=== PATIENT | female | born 1985 | race Hispanic/Latino ===

== ENCOUNTER 2018-12-02 07:03 | Emergency (ER) | payer OTHER ==
[2018-12-02] MEDS ORDERED: Sodium Chloride 0.9% 1,000 ML IV STA (07:52)
[2018-12-02 08:11] LABS: ALB/GLOB RATIO 1.1 (1.0-2.1); ALBUMIN 3.8 g/dL (3.5-5.0); BLOOD UREA NITROGEN 18 mg/dl (7-17); CALCIUM 8.7 mg/dL (8.4-10.2); GFR NON-AFRICAN AMERICAN > 60; LIPASE 100 U/L (23-300)
[2018-12-02 08:21] LABS: BASO % 0.5 % (0.0-2.0); EOS # 0.1 K/uL (0.0-0.7); EOS % 2.4 % (0.0-4.0); LYMPH # 0.5 K/uL (1.0-4.3); LYMPH % 9.6 % (20.0-40.0); MEAN CELL VOLUME 98.1 fl (81.0-99.0); MEAN CORPUSCULAR HEMOGLOBIN 33.4 pg (27.0-31.0); MEAN PLATELET VOLUME 8.8 fl (7.2-11.7); MONO # 0.3 K/uL (0.0-0.8); MONO % 5.5 % (0.0-10.0); NEUT # 4.3 K/uL (1.8-7.0); NRBC % 0.1 % (0.0-0.0); PLATELET COUNT 165 K/uL (130-400); RBC 4.57 Mil/uL (3.80-5.20); RED CELL DISTRIBUTION WIDTH 13.8 % (11.5-14.5); WHITE BLOOD COUNT 5.2 K/uL (4.8-10.8)
[2018-12-02 08:39] LABS: HEMOGLOBIN 15.2 g/dL (12.0-16.0)
[2018-12-02 09:22] LABS: ALT/SGPT 17 U/L (9-52); AST/SGOT 29 U/L (14-36)
[2018-12-02] MEDS ORDERED: Morphine 4 MG/ML VIAL ONE ×2 (09:24→13:46)
--- NOTE | 2018-12-02 10:06 | US ---
Date of service: 12/02/2018 HISTORY: RUQ pain epigastric pain COMPARISON: Right upper quadrant ultrasound dated 08/01/2015. TECHNIQUE: Sonographic evaluation of the right upper quadrant of the abdomen. FINDINGS: LIVER: Measures 14.8 cm in length. Normal echogenicity of the liver parenchyma. No mass. No intrahepatic bile duct dilatation. GALLBLADDER: Unremarkable. No gallstones. COMMON BILE DUCT: Measures 5 mm. No stones. No dilatation. PANCREAS: Unremarkable as visualized. No mass. No ductal dilatation. RIGHT KIDNEY: Measures 11.1 x 5.4 x 4.8 cm in length. Normal echogenicity. No calculus, mass, or hydronephrosis. AORTA: No aneurysmal dilatation. IVC: Unremarkable. OTHER FINDINGS: None . IMPRESSION: Unremarkable right upper quadrant ultrasound.
--- NOTE | 2018-12-02 10:23 | ED PDOC ---
HPI: Abdomen Time Seen by Provider: 12/02/18 07:49 Chief Complaint (Nursing): Abdominal Pain Chief Complaint (Provider): Abdominal Pain History Per: Patient History/Exam Limitations: no limitations Onset/Duration Of Symptoms: Days (x1) Current Symptoms Are (Timing): Still Present Additional Complaint(s): Patient is a 33 y/o female with a PMHx of asthma, gastritis, and migraine who presents to the ED for evaluation of epigastric pain, onset yesterday. Patient states she experienced similar episodes on 11/26/2018. Since, the patient claims the pain has been intermittent. Patient admits to non-bloody vomiting, and mucus diarrhea. Patient denies fever, chest pain, urinary symptoms, vaginal discharge or bleeding, and hematuria. PCP: [facility] Medical History Reviewed: Historical Data, Nursing Documentation, Vital Signs Vital Signs: Last Vital Signs Temp 97.3 F L 12/02/18 07:28 Pulse 111 H 12/02/18 07:28 Resp 19 12/02/18 07:28 BP 113/71 12/02/18 07:28 Pulse Ox 100 12/02/18 07:28 - Medical History PMH: Asthma, Gastritis, Migraine Denies: Chronic Kidney Disease - Surgical History Surgical History: No Surg Hx - Family History Family History: States: Unknown Family Hx - Immunization History Hx Influenza Vaccination: Yes (2014) Hx Pneumococcal Vaccination: No - Home Medications Home Medications: Ambulatory Orders Medication Instructions Recorded Aspirin/Acetaminophen/Caffeine 1 tab PO PRN PRN 12/02/18 [Excedrin Migraine Caplet] RX: Ibuprofen [Motrin Tab] 600 mg PO Q8 PRN #30 tab 12/02/18 RX: traMADol [Ultram] 50 mg PO TID PRN #15 tab 12/02/18 - Allergies Allergies/Adverse Reactions: Allergies Allergy/AdvReac Type Severity Reaction Status Date / Time No Known Allergies Allergy Verified 08/09/16 10:51 Review of Systems ROS Statement: Except As Marked, All Systems Reviewed And Found Negative Constitutional: Negative for: Fever Cardiovascular: Negative for: Chest Pain Gastrointestinal: Positive for: Vomiting (non-bloody), Abdominal Pain (epigastric), Diarrhea (mucus) Genitourinary Female: Negative for: Dysuria, Frequency, Incontinence, Hematuria, Vaginal Discharge, Vaginal Bleeding Physical Exam - Reviewed Nursing Documentation Reviewed: Yes Vital Signs Reviewed: Yes - Physical Exam Appears: Positive for: Non-toxic, No Acute Distress (uncomfortable) Head Exam: Positive for: ATRAUMATIC, NORMAL INSPECTION, NORMOCEPHALIC Skin: Positive for: Normal Color, Warm, Dry Eye Exam: Positive for: EOMI, Normal appearance, PERRL Neck: Positive for: Normal, Painless ROM, Supple Cardiovascular/Chest: Positive for: Regular Rate, Rhythm. Negative for: Murmur Respiratory: Positive for: Normal Breath Sounds. Negative for: Respiratory Distress Gastrointestinal/Abdominal: Positive for: Soft, Tenderness (epigastric) Back: Positive for: Normal Inspection. Negative for: L CVA Tenderness, R CVA Tenderness, Vertebral Tenderness Extremity: Positive for: Normal ROM. Negative for: Pedal Edema, Deformity Neurologic/Psych: Positive for: Alert, Oriented. Negative for: Motor/Sensory Deficits - Laboratory Results Result Diagrams: 12/02/18 07:55 12/02/18 07:55 Lab Results: Total Bilirubin 0.6 mg/dl (0.2-1.3) 12/02/18 07:55 AST 29 U/L (14-36) 12/02/18 07:55 ALT 17 U/L (9-52) 12/02/18 07:55 Alkaline Phosphatase 31 U/L (38-126) L 12/02/18 07:55 Total Protein 7.3 G/DL (6.3-8.2) 12/02/18 07:55 Albumin 3.8 g/dL (3.5-5.0) 12/02/18 07:55 Globulin 3.5 gm/dL (2.2-3.9) 12/02/18 07:55 Albumin/Globulin Ratio 1.1 (1.0-2.1) 12/02/18 07:55 Lipase 100 U/L (23-300) 12/02/18 07:55 - ECG O2 Sat by Pulse Oximetry: 100 (RA) Pulse Ox Interpretation: Normal Medical Decision Making Medical Decision Making: Time: 075 Impression: Abdominal pain and vomiting. DDx includes but not limited to acute gastritis, cholecystitis, pancreatitis, and early appendicitis. Plan: * CT Abd & Pelvis w/ IV Contrast * CMP * Lipase * Urine * Urine Dipstick * CBC * Morphine 2 mg IVP * IV Fluids * Pepcid 20 mg IVP * Zofran 4 mg IVP * IV Insertion * Abdomen Limited (GB included) [US] * reevaluation Time: 1002 Abdomen US FINDINGS: LIVER: Measures 14.8 cm in length. Normal echogenicity of the liver parenchyma. No mass. No intrahepatic bile duct dilatation. GALLBLADDER: Unremarkable. No gallstones. COMMON BILE DUCT: Measures 5 mm. No stones. No dilatation. PANCREAS: Unremarkable as visualized. No mass. No ductal dilatation. RIGHT KIDNEY: Measures 11.1 x 5.4 x 4.8 cm in length. Normal echogenicity. No calculus, mass, or hydronephrosis. AORTA: No aneurysmal dilatation. IVC: Unremarkable. OTHER FINDINGS: None . IMPRESSION: Unremarkable right upper quadrant ultrasound Time:1157 CT Abd & Pelvis FINDINGS: LOWER THORAX: Unremarkable. LIVER: Unremarkable. No gross lesion or ductal dilatation. GALLBLADDER AND BILE DUCTS: Unremarkable. PANCREAS: Unremarkable. No gross lesion or ductal dilatation. SPLEEN: Unremarkable. ADRENALS: Unremarkable. No mass. KIDNEYS AND URETERS: Malrotation of the left kidney. Left extrarenal pelvis. No hydronephrosis. No solid mass. VASCULATURE: Unremarkable. No aortic aneurysm. No aortic atherosclerotic calcification or mural plaque present. BOWEL: Unremarkable. No obstruction. No gross mural thickening. APPENDIX: Normal appendix. PERITONEUM: Unremarkable. No free fluid. No free air. LYMPH NODES: Unremarkable. No enlarged lymph nodes. BLADDER: Unremarkable. REPRODUCTIVE: Intrauterine device in place. Large right ovarian cyst measuring 6.1 x 4.3 cm. BONES: No acute fracture. OTHER FINDINGS: None. IMPRESSION: No acute abdominal pelvic pathology. Large right ovarian cyst measuring up to 6.1 cm. Pelvic ultrasound can be obtained for further evaluation as clinically warranted. 1500 Patient is being signed out by me to Judie Ellison MD pending US pelvis/transvaginal results and reevaluation. Scribe Attestation: Documented by Pipe Laurent, acting as a scribe for Ashli Gooden MD. Provider Scribe Attestation: All medical record entries made by the Scribe were at my direction and personally dictated by me. I have reviewed the chart and agree that the record accurately reflects my personal performance of the history, physical exam, medical decision making, and the department course for this patient. I have also personally directed, reviewed, and agree with the discharge instructions and disposition. Scribe Attestation: Documented by Kira Adams, acting as a scribe for Ashli Gooden MD. Provider Scribe Attestation: All medical record entries made by the Scribe were at my direction and personally dictated by me. I have reviewed the chart and agree that the record accurately reflects my personal performance of the history, physical exam, medical decision making, and the department course for this patient. I have also personally directed, reviewed, and agree with the discharge instructions and disposition. Disposition - Clinical Impression Clinical Impression: Abdominal pain, Ovarian cyst - Patient ED Disposition Is Patient to be Admitted: Transfer of Care Counseled Patient/Family Regarding: Studies Performed, Diagnosis - Disposition Referrals: Janice Maravilla MD [Staff Provider] - Disposition: Transfer of Care Disposition Time: 15:00 Condition: STABLE Additional Instructions: FOLLOWUP WITH DR MARAVILLA TOMORROW (OR SOON POSSIBLE) FOR FURTHER MANAGEMENT Prescriptions: RX: Ibuprofen [Motrin Tab] 600 mg PO Q8 PRN #30 tab PRN Reason: Pain, Moderate (4-7) RX: traMADol [Ultram] 50 mg PO TID PRN #15 tab PRN Reason: SEVERE PAIN ONLY Instructions: Acute Abdomen (Belly Pain), Adult (DC), Ovarian Cyst (DC) Forms: [facility] ED School/Work Excuse
[2018-12-02 10:32] LABS: BANDS 3 % (0-2); BASOPHIL 1 % (0-2); EOSINOPHIL 3 % (0-7); LYMPHOCYTE 10 % (20-50); MONOCYTE 5 % (0-10); NEUTROPHIL 78 % (42-75); PLATELET ESTIMATE NORMAL (NORMAL); TOTAL CELLS COUNTED 100
[2018-12-02] MEDS ORDERED: Iohexol 300 100 ML IJ ONE (10:34)
[2018-12-02] MEDS ORDERED: Sodium Chloride 0.9% 50 ML IV ONE (10:34)
--- NOTE | 2018-12-02 12:00 | CT ---
Date of service: 12/02/2018 PROCEDURE: CT Abdomen and Pelvis with contrast HISTORY: epigastric pain COMPARISON: Correlation is made to pelvic ultrasound dated 08/09/2016; CT scan of the abdomen pelvis dated 02/27/2012 TECHNIQUE: Contrast dose: 95 mL Omnipaque 300 Radiation dose: Total exam DLP = 525.01 mGy-cm. This CT exam was performed using one or more of the following dose reduction techniques: Automated exposure control, adjustment of the mA and/or kV according to patient size, and/or use of iterative reconstruction technique. FINDINGS: LOWER THORAX: Unremarkable. LIVER: Unremarkable. No gross lesion or ductal dilatation. GALLBLADDER AND BILE DUCTS: Unremarkable. PANCREAS: Unremarkable. No gross lesion or ductal dilatation. SPLEEN: Unremarkable. ADRENALS: Unremarkable. No mass. KIDNEYS AND URETERS: Malrotation of the left kidney. Left extrarenal pelvis. No hydronephrosis. No solid mass. VASCULATURE: Unremarkable. No aortic aneurysm. No aortic atherosclerotic calcification or mural plaque present. BOWEL: Unremarkable. No obstruction. No gross mural thickening. APPENDIX: Normal appendix. PERITONEUM: Unremarkable. No free fluid. No free air. LYMPH NODES: Unremarkable. No enlarged lymph nodes. BLADDER: Unremarkable. REPRODUCTIVE: Intrauterine device in place. Large right ovarian cyst measuring 6.1 x 4.3 cm. BONES: No acute fracture. OTHER FINDINGS: None. IMPRESSION: No acute abdominal pelvic pathology. Large right ovarian cyst measuring up to 6.1 cm. Pelvic ultrasound can be obtained for further evaluation as clinically warranted.
[2018-12-02] MEDS ORDERED: Morphine 4 MG/ML VIAL IVP ONE (13:27)
[2018-12-02] MEDS ORDERED: Morphine 4 MG/ML VIAL IVP STA (14:00)
--- NOTE | 2018-12-02 15:10 | ED PDOC ---
- Laboratory Results Result Diagrams: 12/02/18 07:55 12/02/18 07:55 Lab Results: Total Bilirubin 0.6 mg/dl (0.2-1.3) 12/02/18 07:55 AST 29 U/L (14-36) 12/02/18 07:55 ALT 17 U/L (9-52) 12/02/18 07:55 Alkaline Phosphatase 31 U/L (38-126) L 12/02/18 07:55 Total Protein 7.3 G/DL (6.3-8.2) 12/02/18 07:55 Albumin 3.8 g/dL (3.5-5.0) 12/02/18 07:55 Globulin 3.5 gm/dL (2.2-3.9) 12/02/18 07:55 Albumin/Globulin Ratio 1.1 (1.0-2.1) 12/02/18 07:55 Lipase 100 U/L (23-300) 12/02/18 07:55 - ECG O2 Sat by Pulse Oximetry: 100 (RA) Pulse Ox Interpretation: Normal - CT Scan/US US pelvis/transvaginal Other Rad Studies (CT/US): Read By Radiologist, Radiology Report Reviewed (see MDM note) Medical Decision Making Medical Decision Makin:00 Patient is being signed out to me by Ashli Gooden MD pending US pelvis/transvaginal results and reassessment. 15:52 US pelvis/transvaginal read and reviewed by radiologist FINDINGS: UTERUS: Measures 12.5 x 5.6 x 6.7 cm. Anteverted. Normal in size and appearance. No fibroid or other mass lesion seen. ENDOMETRIUM: Measures 5 mm in diameter. Intrauterine device in place. CERVIX: No cervical abnormality identified. RIGHT OVARY: Measures 6.5 x 4.2 x 4.9 cm. Large septated cyst measuring 6.2 x 3.8 x 4.1 cm. Normal flow. LEFT OVARY: Measures 3.8 x 1.3 x 3.3 cm. No solid mass. Normal flow. FREE FLUID: Trace free fluid in the cul-de-sac. OTHER FINDINGS: None. IMPRESSION: Large right ovarian cyst with thin septation measuring 6.2 x 3.8 x 4.1 cm. A cyst of this size places the patient at increased risk of torsion. Annual sonographic follow-up is advised. ALIX Maravilla pt's OB who advises eval by [facility] DW Dr Galvan who will come down to eval patient. 1730 Per [facility] OB pt to be discharged and followup with OB DW pt findings and plan of care. Rest, pain control, f/u Dr Maravilla 24-48 hours. Scribe Attestation: Documented by Kira Adams, acting as a scribe for Judie Ellison MD. Provider Scribe Attestation: All medical record entries made by the Scribe were at my direction and personally dictated by me. I have reviewed the chart and agree that the record a ccurately reflects my personal performance of the history, physical exam, medical decision making, and the department course for this patient. I have also personally directed, reviewed, and agree with the discharge instructions and disposition Disposition Counseled Patient/Family Regarding: Studies Performed, Diagnosis, Need For Followup, Rx Given - Clinical Impression Clinical Impression: Abdominal pain, Ovarian cyst - POA Present On Arrival: None - Disposition Referrals: Janice Maravilla MD [Staff Provider] - Disposition: Routine/Home Disposition Time: 17:32 Condition: STABLE Additional Instructions: FOLLOWUP WITH DR MARAVILLA TOMORROW (OR SOON POSSIBLE) FOR FURTHER MANAGEMENT Prescriptions: Ibuprofen [Motrin Tab] 600 mg PO Q8 PRN #30 tab PRN Reason: Pain, Moderate (4-7) traMADol [Ultram] 50 mg PO TID PRN #15 tab PRN Reason: SEVERE PAIN ONLY Instructions: Acute Abdomen (Belly Pain), Adult (DC), Ovarian Cyst (DC) Forms: [facility] ED School/Work Excuse
--- NOTE | 2018-12-02 15:56 | US ---
Date of service: 12/02/2018 HISTORY: right ovarian cyst abdominal pain COMPARISON: CT scan of the abdomen pelvis performed earlier the same day. TECHNIQUE: Grayscale, color Doppler and spectral evaluation the pelvis performed trans abdominally and transvaginally. FINDINGS: UTERUS: Measures 12.5 x 5.6 x 6.7 cm. Anteverted. Normal in size and appearance. No fibroid or other mass lesion seen. ENDOMETRIUM: Measures 5 mm in diameter. Intrauterine device in place. CERVIX: No cervical abnormality identified. RIGHT OVARY: Measures 6.5 x 4.2 x 4.9 cm. Large septated cyst measuring 6.2 x 3.8 x 4.1 cm. Normal flow. LEFT OVARY: Measures 3.8 x 1.3 x 3.3 cm. No solid mass. Normal flow. FREE FLUID: Trace free fluid in the cul-de-sac. OTHER FINDINGS: None. IMPRESSION: Large right ovarian cyst with thin septation measuring 6.2 x 3.8 x 4.1 cm. A cyst of this size places the patient at increased risk of torsion. Annual sonographic follow-up is advised.
[2018-12-02 16:52] VITALS: RESP 18
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
[2018-12-02 17:38] VITALS: BP 101/58; PULSE 97
[2018-12-02 17:50] VITALS: TEMP 98.9
[2018-12-03 14:42] VITALS: O2SAT 100
== END 2018-12-02 17:50 | disposition home or self-care (01) ==
LOC: H.ER 07:03
DX: R10.13 Epigastric pain (principal); N83.201 Unspecified ovarian cyst, right side; J45.909 Unspecified asthma, uncomplicated; Z97.5 Presence of (intrauterine) contraceptive device
CPT/HCPCS: 74177; 76705; 76830; 76856; 80053; 81025; 83690; 85025; 96361; 96374; 96375; 96376; 99285; J2270; J2405; J2765; J7030; Q9967

== ENCOUNTER 2018-12-10 08:50 | Emergency (ER) | payer OTHER ==
[2018-12-10 09:01] VITALS: PULSE 77; O2SAT 99
--- NOTE | 2018-12-10 09:16 | ED PDOC ---
HPI: Female Pain Time Seen by Provider: 12/10/18 08:59 Chief Complaint (Nursing): Abdominal Pain Chief Complaint (Provider): Abdominal Pain History Per: Patient History/Exam Limitations: no limitations Onset/Duration Of Symptoms: Persistent (x3 weeks), Worse Since (12/09/18) Current Symptoms Are (Timing): Still Present Additional Complaint(s): 33 year old female, [employer] employee with pmHx of asthma and gastritis, presents to ED with a complaint of worsening lower, right-sided abdominal pain since yesterday. Patient was seen in ED on 12/02/[address] findings of (+) 6.1cm right ovarian cyst and has been taking Motrin and Tramadol with no alleviation. Patient reports developing nausea and vaginal bleeding yesterday, in which, she states is abnormal for her as she has not had her menses in 2 years. PCP: none provided PERSONNEL RESEARCH SCIENTIST: Dr. Janice Reynaga Past Medical History Reviewed: Historical Data, Nursing Documentation, Vital Signs Vital Signs: Last Vital Signs Temp 97 F L 12/10/18 09:00 Pulse 77 12/10/18 09:00 Resp 16 12/10/18 09:00 BP 112/67 12/10/18 09:00 Pulse Ox 99 12/10/18 09:00 - Medical History PMH: Asthma, Gastritis, Migraine Denies: Chronic Kidney Disease - Family History Family History: States: Unknown Family Hx - Immunization History Hx Influenza Vaccination: Yes (2014) Hx Pneumococcal Vaccination: No - Home Medications Home Medications: Ambulatory Orders Medication Instructions Recorded Aspirin/Acetaminophen/Caffeine 1 tab PO PRN PRN 12/02/18 [Excedrin Migraine Caplet] Ibuprofen [Motrin Tab] 600 mg PO Q8 PRN #30 tab 12/02/18 traMADol [Ultram] 50 mg PO TID PRN #15 tab 12/02/18 - Allergies Allergies/Adverse Reactions: Allergies Allergy/AdvReac Type Severity Reaction Status Date / Time No Known Allergies Allergy Verified 08/09/16 10:51 Review of Systems ROS Statement: Except As Marked, All Systems Reviewed And Found Negative Constitutional: Negative for: Fever, Chills Gastrointestinal: Positive for: Nausea, Abdominal Pain (RLQ). Negative for: Vomiting Genitourinary Female: Positive for: Vaginal Bleeding Physical Exam - Reviewed Nursing Documentation Reviewed: Yes Vital Signs Reviewed: Yes - Physical Exam Appears: Positive for: In Acute Distress (painful) Head Exam: Positive for: ATRAUMATIC, NORMAL INSPECTION, NORMOCEPHALIC Skin: Positive for: Normal Color Eye Exam: Positive for: Normal appearance ENT: Positive for: Normal ENT Inspection Neck: Positive for: Normal Cardiovascular/Chest: Positive for: Regular Rate, Rhythm Respiratory: Positive for: Normal Breath Sounds. Negative for: Respiratory Distress Gastrointestinal/Abdominal: Positive for: Soft, Tenderness (extremly on right side. significant in RLQ) Extremity: Positive for: Normal ROM (upper/lower) Neurologic/Psych: Positive for: Alert, Oriented. Negative for: Motor/Sensory Deficits - Laboratory Results Result Diagrams: 12/10/18 09:17 12/10/18 09:17 Urine POC: Negative - ECG O2 Sat by Pulse Oximetry: 99 (RA) Pulse Ox Interpretation: Normal Medical Decision Making Medical Decision Making: Time: 912 Initial Plan: work up for known ovarian cyst R/O torsion. Pain control initiated. Will consider repeat CT if no other abnormality. * Labs wuth UA * US transvaginal * Morphine 2mg IVP * Zofran 4mg IVP * Reassessment Time: 1037 --Preliminary read of transvaginal US by provider: good bilateral flow. No abnormality visualized on ovaries. At present, patient remains with stable vitals, resting comfortably, and reports improvement in symptoms. Awaiting radiologist's official read. Time: 1145 --Transvaginal US FINDINGS: UTERUS: Measures 10.0 x 7.0 x 6.4 cm. Anteverted, normal in size and appearance. No fibroid or other mass lesion seen. ENDOMETRIUM: Measures 3.0 mm in diameter. An IUD remains in place. CERVIX: No cervical abnormality identified. RIGHT OVARY: Measures 6.7 x 6.5 x 4.4 cm. No solid mass. Normal flow. There is little interval change in size of known complicated septated which now measures 5.6 x 5.8 x 4.0 cm, previously measured 6.0 x 3.8 x 4.1 cm. The septations are not as well visualized on the current examination LEFT OVARY: Measures 4.8 x 2.6 x 1.5 cm. No solid mass. Normal flow. There is interval mild decrease in size of 2 simple cysts which now measures 1.8 x 2.3 x 2.0 cm and 1.3 x 1.5 x 1.7 cm. FREE FLUID: No significant free fluid noted. OTHER FINDINGS: None. IMPRESSION: Little interval change in known complicated septated cyst in the right ovary which now measures 5.6 x 5.8 x 4.0 cm. No evidence for ovarian torsion. Follow-up ultrasound in 3-6 month interval is recommended to assess stability/resolution. Scribe Attestation: Documented by Natalie Tan, acting as a scribe for Kira Lira MD. Provider Scribe Attestation: All medical record entries made by the Scribe were at my direction and personally dictated by me. I have reviewed the chart and agree that the record accurately reflects my personal performance of the history, physical exam, medical decision making, and the department course for this patient. I have also personally directed, reviewed, and agree with the discharge instructions and disposition. Disposition - Disposition Forms: [employer] (Macedonian)
[2018-12-10 09:27] LABS: BASO # 0.1 K/uL (0.0-0.2); BASO % 1.2 % (0.0-2.0); EOS # 0.3 K/uL (0.0-0.7); EOS % 7.4 % (0.0-4.0); HEMOGLOBIN 14.2 g/dL (12.0-16.0); LYMPH % 42.9 % (20.0-40.0); MEAN CELL VOLUME 96.2 fl (81.0-99.0); MEAN CORPUSCULAR HEMOGLOBIN 33.3 pg (27.0-31.0); MEAN CORPUSCULAR HGB CONC 34.6 g/dL (33.0-37.0); MEAN PLATELET VOLUME 8.1 fl (7.2-11.7); MONO # 0.5 K/uL (0.0-0.8); MONO % 10.3 % (0.0-10.0); NEUT # 1.8 K/uL (1.8-7.0); NEUT % 38.2 % (50.0-75.0); NRBC % 0.2 % (0.0-0.0); RBC 4.26 Mil/uL (3.80-5.20); RED CELL DISTRIBUTION WIDTH 13.4 % (11.5-14.5); WHITE BLOOD COUNT 4.6 K/uL (4.8-10.8)
[2018-12-10 09:37] LABS: BLOOD UREA NITROGEN 16 mg/dl (7-17); CALCIUM 9.2 mg/dL (8.4-10.2); GFR NON-AFRICAN AMERICAN > 60
[2018-12-10 11:09] LABS: SQUAMOUS EPITHIAL 4 /hpf (0-5); URINE BACTERIA RARE (<OCC); URINE BILIRUBIN NEGATIVE (NEGATIVE); URINE BLOOD LARGE (NEGATIVE); URINE CLARITY SLIGHTY-CLOUDY (Clear); URINE COLOR YELLOW (YELLOW); URINE GLUCOSE (UA) NEG (NEGATIVE); URINE LEUKOCYTE ESTERASE TRACE Leu/uL (Negative); URINE PROTEIN NEGATIVE (NEGATIVE); URINE UROBILINOGEN 0.2-1.0 mg/dL (0.2-1.0)
--- NOTE | 2018-12-10 11:51 | US ---
Date of service: 12/10/2018 HISTORY: known ovarian cysts, rule out torsion COMPARISON: 12/02/2018 TECHNIQUE: Transvaginal pelvic ultrasound was performed. FINDINGS: UTERUS: Measures 10.0 x 7.0 x 6.4 cm. Anteverted, normal in size and appearance. No fibroid or other mass lesion seen. ENDOMETRIUM: Measures 3.0 mm in diameter. An IUD remains in place. CERVIX: No cervical abnormality identified. RIGHT OVARY: Measures 6.7 x 6.5 x 4.4 cm. No solid mass. Normal flow. There is little interval change in size of known complicated septated which now measures 5.6 x 5.8 x 4.0 cm, previously measured 6.0 x 3.8 x 4.1 cm. The septations are not as well visualized on the current examination LEFT OVARY: Measures 4.8 x 2.6 x 1.5 cm. No solid mass. Normal flow. There is interval mild decrease in size of 2 simple cysts which now measures 1.8 x 2.3 x 2.0 cm and 1.3 x 1.5 x 1.7 cm. FREE FLUID: No significant free fluid noted. OTHER FINDINGS: None. IMPRESSION: Little interval change in known complicated septated cyst in the right ovary which now measures 5.6 x 5.8 x 4.0 cm. No evidence for ovarian torsion. Follow-up ultrasound in 3-6 month interval is recommended to assess stability/resolution.
[2018-12-10 14:18] VITALS: BP 110/65; RESP 18; TEMP 98.3
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
== END 2018-12-10 13:42 | disposition home or self-care (01) ==
LOC: H.ER 08:50
DX: R10.31 Right lower quadrant pain (principal); J45.909 Unspecified asthma, uncomplicated; N83.201 Unspecified ovarian cyst, right side; Z80.1 Family history of malignant neoplasm of trachea, bronchus and lung
CPT/HCPCS: 76830; 80048; 81003; 81025; 85025; 96374; 96375; 99284; J1885; J2270; J2405

== ENCOUNTER 2018-12-17 08:51 | Day surgery (SDC) | payer OTHER ==
[2018-12-14 10:25] VITALS: BMI 24.7
[2018-12-17] MEDS ORDERED: Lactated Ringer's 1,000 ML IV ONE ×3 (10:12→14:51)
[2018-12-17] MEDS ORDERED: Propofol 10 mg/ml Inj (20 ML) ONE (12:06)
[2018-12-17] MEDS ORDERED: Rocuronium 10 mg/ml (5 ml) ONE (12:06)
[2018-12-17] MEDS ORDERED: Succinylcholine Chloride 20 mg/ml Syr (5 ml) IV ONE (12:06)
[2018-12-17] MEDS ORDERED: Lidocaine 4% (Laryng-O-Jet) Kit MM ONE (12:06)
[2018-12-17] MEDS ORDERED: Bupivacaine HCl 0.5% PF (30 ml) Inj ONE (12:27)
[2018-12-17] MEDS ORDERED: Midazolam 2 MG/2 ML VIAL ONE (12:31)
[2018-12-17] MEDS ORDERED: Neostigmine 1:1000 (1 mg/ml) Inj ONE (13:09)
[2018-12-17] MEDS ORDERED: Bupivacaine HCl 0.5% PF (30 ml) Inj IJ ONE (13:35)
[2018-12-17] MEDS ORDERED: HYDROmorphone 0.5 mg/0.5 ml ISec IVP PRN (13:56)
[2018-12-17] MEDS ORDERED: Lactated Ringer's 1,000 ML IV SCH (14:00)
[2018-12-17 16:12] VITALS: RESP 18
[2018-12-17 18:08] VITALS: PULSE 73
[2018-12-17 18:58] VITALS: BP 117/69; TEMP 97.9; O2SAT 100
--- NOTE | 2018-12-18 02:26 | OP ---
PROCEDURE DATE: 12/17/2018 PREOPERATIVE DIAGNOSES: Right 8 cm persistent ovarian cyst, pelvic pain. POSTOPERATIVE DIAGNOSES: Right 8 cm persistent ovarian cyst, pelvic pain. OPREATIVE PERFORMED: Right ovarian cystectomy. SURGEON: Janice Reynaga MD PRINT CONTROLLER: Delio Eaton MD. He was helpful in creating exposure, obtaining hemostasis, extraction of the specimen and closure of the patient. The procedure would not have been possible without his assistance. ANESTHESIA: General. ANESTHESIA ADMINISTERED BY: Calderon Jameson MD ESTIMATED BLOOD LOSS: 10 mL. URINE OUTPUT: Oshea catheter put out approximately 200 mL of clear urine. INTRAVENOUS FLUID INTAKE: The patient received 1500 mL of D5 LR intraoperatively. OPERATIVE FINDINGS: Normal uterus, tubes, and left ovary. Right ovary contained a 7 to 8-cm simple ovarian cyst. DESCRIPTION OF PROCEDURE: After informed consent was obtained, the patient was taken to the operating room where she was given general anesthesia. She was then placed in the [facility], prepped and draped in a normal sterile fashion. Attention was then turned to the vagina where a weighted speculum was inserted. The anterior lip of the cervix was identified, grasped with single-tooth tenaculum. The HUMI uterine manipulator was inserted in the uterine cavity as a means to manipulate the uterus. Attention was then turned to the urethra where Oshea was inserted to monitor the patient's urinary output. We then proceeded to the abdomen where an 8-mm incision was made in the umbilical fold. The abdomen was tended upward, and a Veress needle was inserted in the abdominal cavity. Placement was confirmed with a fluid-filled syringe. The abdomen was then insufflated to 20 mmHg. The Veress needle was removed, and an 8-mm robotic port was introduced into the abdominal cavity. Placement was confirmed with a laparoscope. Attention was then turned to approximately 4 cm superior to the right anterior iliac crest. An 8-mm incision was made, and a robotic port was introduced into the abdominal cavity. A similar procedure was performed on the left, approximately 10 cm left and lateral to the umbilicus. A 5-mm incision was made, and an accessory port was introduced in the abdominal cavity. The right ovary was then elevated and placed upon the uterus. The uterine cortex was scored, and the ovarian cyst wall was enucleated using both sharp and blunt dissection. The specimen was then removed from the abdomen and sent to pathology for evaluation. The hemostasis was obtained using the PK dissector. The ovary was irrigated. It was noted to be hemostatic. Photomicrographs were taken for documentation. All instruments were then removed from the abdomen, and the skin was closed with 3-0 Biosyn and Dermabond. All sponge, lap, needle, and instrument counts were correct x2, and the patient was taken to recovery room in awake and stable condition. Janice Reynaga MD [id number]
== END 2018-12-17 19:55 | disposition home or self-care (01) ==
LOC: H.OPSURG 08:51
PROVIDERS: ATTEND Obstetrics & Gynecology Gynecology
DX: N83.201 Unspecified ovarian cyst, right side (principal); R10.2 Pelvic and perineal pain
CPT/HCPCS: 58662; 88305; J0131; J0690; J1170; J1885; J2001; J2250; J2704; J2710; J3010; J7120